=== PATIENT | male | born 1980 | race African-American/Black ===

== ENCOUNTER 2021-06-30 04:38 | Emergency (ER) | payer SELFPAY ==
--- NOTE | ~2021-06-30 | XR_ITS ---
XR thoracic spine 3V DATE: 06/30/2021 06:15 INDICATION: Mid and lower thoracic spine pain for one day TECHNIQUE: AP, lateral, swimmer views COMPARISON: None FINDINGS: Normal alignment of the thoracic spine. No fracture or dislocation or bone destruction. The thoracic pedicles are intact. No paraspinal soft tissue thickening. Multiple surgical clips overlie the medial left upper quadrant of the abdomen. IMPRESSION: Negative thoracic spine Postoperative change of the abdomen Reviewed, dictated and finalized at location A. [facility]
--- NOTE | 2021-06-30 04:43 | ED.GENADULT ---
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 It started when he was waiting in line for a subway sandwich but got worse until he got into the truck. He called EMS who had to give him 100 microgram of fentanyl to get him out of the truck. There was no fall or trauma. He denies CP, SOB, N/V, lightheadedness and weakness. Related Data Allergies Allergy/AdvReac Type Severity Reaction Status Date / Time No Known Allergies Allergy Verified 06/30/21 05:11 Review of Systems Constitutional: Constitutional: Reports no additional constitutional complaints Eyes: Eyes: Reports no additional eye complaints ENT: Reports system reviewed and no additional complaints, except as documented Cardiovascular: Cardiovascular: Reports no additional cardiovascular complaints Respiratory: Respiratory: Reports no additional respiratory complaints Gastrointestinal: Gastrointestinal: Reports no additional gastrointestinal complaints Genitourinary: Genitourinary: Reports no additional male genitourinary complaints Musculoskeletal: Musculoskeletal: Reports as per HPI Integumentary/Breasts: Skin/Breast: Reports system reviewed and no additional complaints, except as docu Neurologic: Reports system reviewed and no additional complaints, except as documented Psychiatric: Psychiatric: Reports no additional psychiatric complaints Endocrine: Endocrine: Reports no additional endocrine complaints Hematologic/Lymphatic: Hematologic/Lymphatic: Reports no additional hematologic/lymphatic complaints Allergic/Immunologic: Allergic/Immunologic: Reports no additional allergic/immunologic complaints Exam Const: General: no acute distress and alert Orientation/consciousness: patient oriented x3 Limitations: No altered mental status HENMT: Head: normal to inspection Other: normocephalic, atraumatic Eyes: Conjunctivae: conjunctivae normal Pupils: Equal, round and reactive pupils present Neck: Neck: normal visual inspection Chest: Chest palpation & inspection: normal inspection of the chest Resp: Effort & Inspection: normal respiratory effort, not labored, no retractions and not tachypneic Auscultation: clear to auscultation bilaterally Cardio: Rate: regular rate Rhythm: regular rhythm GI: Inspection: non-distended GI Palp: Yes Soft to palpation, No Tenderness to palpation present (GI) and No Guarding due to palpation present (GI) : General: Yes no CVA tenderness Back/Spine/Pelvis: Back: no CVA tenderness Other: No midline tenderness but the thoracic spine had hypertonic paraspinal musculature bilaterally and the muscles were TTP. Skin: General skin exam: normal color Rashes: no rashes Neuro: General: patient oriented x3 and moves all extremities Other: 5/5 strength throughout the upper and lower extremities. sensation intact in all dermatomes. Extrem: General: normal to inspection Psych: Mental Status: mental status grossly normal Course Course Emergency Course: Garrettrey was evaluated. Ordered toradol, flexeril, and radiographs. X rays showed no acute fracture or malalignment appreciated. Multiple surgical clips noted in the upper abdomen. Vital Signs Vital signs: Vital Signs Temperature 97.4 F L 06/30/21 04:48 Pulse Rate 69 06/30/21 04:48 Respiratory Rate 18 06/30/21 04:48 Blood Pressure 118/77 06/30/21 04:48 Pulse Oximetry 96 06/30/21 04:48 Temperature 97.4 F L 06/30/21 04:48 Pulse Rate 69 06/30/21 04:48 Respiratory Rate 18 06/30/21 04:48 Blood Pressure 118/77 06/30/21 04:48 Pulse Oximetry 96 06/30/21 04:48 Medical Decision Making Vital Signs Vital Signs: Vital Signs Temperature 97.4 F L 06/30/21 04:48 Pulse Rate 69
[2021-06-30 04:48] VITALS: BP 118/77; PULSE 69; RESP 18; TEMP 36.3; O2SAT 96
[2021-06-30] MEDS: CYCLOBENZAPRINE HCL 10 MG TABLET PO (05:11)
[2021-06-30] MEDS: KETOROLAC 30 MG/ML VIAL (*BKC) IM (05:12)
== END 2021-06-30 07:13 | disposition home or self-care (01) ==
PROVIDERS: Emergency Provider Family Medicine
DX: M54.9 Dorsalgia, unspecified (principal)
CPT/HCPCS: 72072; 96372; 99283; A9270; J1885